=== PATIENT | male | born 1955 | race Caucasian/White ===

== ENCOUNTER 2019-08-17 07:10 | Outpatient (CLI) | payer MEDICARE, SELFPAY ==
[2019-08-17 08:34] LABS: Thyroid Stimulating Hormone 3.18 uIU/mL (0.36-3.74)
== END 2019-08-17 07:11 | disposition home or self-care (01) ==
DX: E03.9 Hypothyroidism, unspecified (principal)
CPT/HCPCS: 36415; 84443

== ENCOUNTER 2020-08-02 07:59 | Outpatient (CLI) | payer MEDICARE, MEDICAID, SELFPAY ==
--- NOTE | ~2020-08-02 | XR_ITS ---
EXAMINATION: XR chest 2V 08/02/2020 08:34 INDICATION: Hypothyroidism. History of cancer of the mouth. Previous smoker. PROCEDURE: 2 view chest COMPARISON: 10/28/2018 FINDINGS: The lungs are clear. The cardiomediastinal silhouette is within normal limits. There are no pleural effusions. There is no pneumothorax suspected. IMPRESSION: 1: NO ACUTE CARDIOPULMONARY DISEASE. Reviewed, dictated and finalized at location A.
[2020-08-02 09:19] LABS: Thyroid Stimulating Hormone 3.75 uIU/mL (0.36-3.74)
== END 2020-08-02 08:00 | disposition home or self-care (01) ==
PROVIDERS: Visit Provider Otolaryngology
DX: E03.9 Hypothyroidism, unspecified (principal); Z85.818 Personal history of malignant neoplasm of other sites of lip, oral cavity, and pharynx
CPT/HCPCS: 36415; 71046; 84443

== ENCOUNTER 2021-06-06 08:41 | Outpatient (CLI) | payer MEDICARE, MEDICAID, SELFPAY ==
--- NOTE | ~2021-06-06 | XR_ITS ---
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 Comparison is made to prior examination from 08/02/2020. FINDINGS: Azygos fissure. The lungs are clear. There are no pleural effusions. The cardiomediastin al silhouette is within normal limits. There is no pneumothorax suspected. The bones and soft tissu es are unremarkable. IMPRESSION: No acute cardiopulmonary findings. Reviewed, dictated and finalized at location A.
[2021-06-06 10:27] LABS: Thyroid Stimulating Hormone 3.63 uIU/mL (0.36-3.74)
== END 2021-06-06 08:42 | disposition home or self-care (01) ==
LOC: CHSLAB 08:44
PROVIDERS: PCP Otolaryngology; Visit Provider Otolaryngology
DX: Z85.818 Personal history of malignant neoplasm of other sites of lip, oral cavity, and pharynx (principal); E03.8 Other specified hypothyroidism
CPT/HCPCS: 36415; 71046; 84443

== ENCOUNTER 2022-06-13 08:07 | Outpatient (CLI) | payer MEDICARE, MEDICAID, SELFPAY ==
--- NOTE | ~2022-06-13 | XR_ITS ---
EXAMINATION: XR chest 2V DATE: 06/13/2022 08:34 INDICATION: Personal history of malignant neoplasm of other sites TECHNIQUE: PA and lateral views of the chest are obtained. COMPARISON: 06/06/2021 FINDINGS: The lungs are free of acute opacities. No pleural effusion or pneumothorax. The cardiomedia stinal silhouette is normal. There is moderate thoracic spondylosis. IMPRESSION: 1. No acute cardiopulmonary abnormality. Reviewed, dictated and finalized at location B.
[2022-06-13 09:43] LABS: Thyroid Stimulating Hormone 4.07 uIU/mL (0.36-3.74)
== END 2022-06-13 08:08 | disposition home or self-care (01) ==
LOC: CHSLAB 08:10
PROVIDERS: Visit Provider Otolaryngology
DX: E03.8 Other specified hypothyroidism (principal); Z85.818 Personal history of malignant neoplasm of other sites of lip, oral cavity, and pharynx
CPT/HCPCS: 36415; 71046; 84443

== ENCOUNTER 2024-04-15 13:48 | Outpatient (CLI) | payer MEDICARE, MEDICAID, SELFPAY | END 2024-04-15 13:49 | disposition home or self-care (01) | LOC: ANHAUDIO 13:48 | PROVIDERS: PCP Family Medicine; Visit Provider Family Medicine | DX: H90.A22 Sensorineural hearing loss, unilateral, left ear, with restricted hearing on the contralateral side (principal); H90.A31 Mixed conductive and sensorineural hearing loss, unilateral, right ear with restricted hearing on the contralateral side | CPT/HCPCS: 92557; 92567 ==